=== PATIENT | male | born 1945 | race Caucasian/White ===

== ENCOUNTER 2021-11-20 12:51 | Inpatient (IN) | payer OTHER ==
[2021-11-20] MEDS: APIXABAN 5 MG TABLET PO SCH ×2 (09:00→21:00)
[2021-11-20] MEDS ORDERED: LEVALBUTEROL 1.25 MG/3 ML NEB ONE (13:11)
[2021-11-20] MEDS ORDERED: METHYLPREDNISOLONE 125 MG INJ ONE (13:11)
[2021-11-20 13:47] LABS: Absolute Lymphocytes (CBC) 0.4 K/uL (0.7-4.9); Hematocrit 50.2 % (39.6-49.0); Lymphocytes % 5.6 % (15.3-44.8); MPV 8.2 fL (7.6-11.3); RBC Red Blood Cell Count 5.51 M/uL (4.33-5.43)
[2021-11-20 13:58] LABS: Protime INR 1.09
[2021-11-20 14:09] LABS: Albumin 2.8 g/dL (3.4-5.0); Bilirubin Direct 0.3 mg/dL (0-0.2); Bilirubin Total 0.8 mg/dL (0.2-1.0); Magnesium 2.9 mg/dL (1.8-2.4); Potassium 3.5 mmol/L (3.5-5.1); Protein, Total 7.8 g/dL (6.4-8.2); Troponin High Sensitivity 36.1 pg/mL (<58.9)
[2021-11-20 14:26] LABS: Blood Morphology Comment NOT SEEN (NOT SEEN); Platelet Estimate ADEQ; White Blood Cell Scan OK (OK)
--- NOTE | 2021-11-20 14:28 | RAD REPORT ---
EXAM DESCRIPTION: RAD - Chest Single View - 11/20/2021 1:55 pm CLINICAL HISTORY: COPD;Dyspnea Chest pain. COMPARISON: No comparisons FINDINGS: Portable technique limits examination quality. Moderate bilateral pulmonary opacities are present, greater on the left, likely representing pneumoni a. The heart is mildly enlarged in size. No displaced fractures.
[2021-11-20] MEDS ORDERED: CEFTRIAXONE 1000 MG/VIAL ONE (15:09)
[2021-11-20] MEDS ORDERED: AZITHROMYCIN 250 MG TAB ONE (15:09)
[2021-11-20] MEDS ORDERED: NA CHLORIDE 0.9% 50 ML ONE (15:09)
[2021-11-20 15:31] LABS: SARS-COV-2 RT PCR POSITIVE (NEGATIVE)
[2021-11-20] MEDS ORDERED: NA CHLORIDE 0.9% 500 ML ONE (15:48)
[2021-11-20] MEDS ORDERED: FAMOTIDINE 20 MG/2 ML VIAL IV ONE (15:48)
[2021-11-20] MEDS ORDERED: NA CHLORIDE 0.9% 1,000 ML ONE (18:09)
[2021-11-20] MEDS ORDERED: ACETAMINOPHEN 500 MG TAB PO PRN (19:29)
[2021-11-20] MEDS ORDERED: MORPHINE 2 MG/ML SYR IV PRN (19:29)
[2021-11-20] MEDS ORDERED: ONDANSETRON 4 MG/2 ML VIAL IV PRN (19:29)
[2021-11-20] MEDS ORDERED: ALBUTEROL INHALER 60 PUFF/8 GM IH PRN (19:35)
[2021-11-20] MEDS: NA CHLORIDE 0.9% 1,000 ML IV SCH (20:00)
--- NOTE | 2021-11-20 20:41 | ER ---
Nurse's Notes [facility] Name: Mejia Santos Jr Age: 76 yrs Sex: Male : 1945 Arrival Date: 11/20/2021 Time: 12:55 Bed 16 Private MD: Gretta Gaston H Diagnosis: Pneumonia, unspecified [id number];Hypoxemia Presentation: 11/20 13:05 Chief complaint: Patient states: Pt has been vomiting and diarrhea x2 weeks; jh5 significantly more weak last 3 days. Coronavirus screen: Vaccine status: Patient reports being unvaccinated. Client denies travel out of the [place] in the last 14 days. Client presents with at least one sign or symptom that may indicate coronavirus-19. Standard/surgical mask placed on the client. Provider contacted for isolation considerations. Ebola Screen: Patient negative for fever greater than or equal to 101.5 degrees Fahrenheit, and additional compatible Ebola Virus Disease symptoms Patient denies exposure to infectious person. Patient denies travel to an Ebola-affected area in the 21 days before illness onset. Initial Sepsis Screen: Does the patient meet any 2 criteria? RR > 20 per min. HR > 90 bpm. Does the patient have a suspected source of infection? Yes:. Risk Assessment: Do you want to hurt yourself or someone else? Patient reports no desire to harm self or others. Onset of symptoms was November 2021. 13:05 Method Of Arrival: Ambulatory [facility] 13:05 Acuity: NEIL 2 [facility] Triage Assessment: 13:08 General: Appears distressed, uncomfortable, slender, well groomed, well developed, well [facility] nourished, Behavior is calm, cooperative, appropriate for age. Pain: Denies pain. Historical: - Allergies: 13:08 No Known Allergies; jh5 - Home Meds: 17:08 tamsulosin 0.4 mg oral cap 1 cap once daily [Active]; aspirin 81 mg Oral TbEC 1 tab ph once daily [Active]; clopidogrel 75 mg oral tab 1 tab once daily [Active]; metoprolol succinate 25 mg oral Tb24 1 tab once daily [Active]; atorvastatin 40 mg oral tab 1 tab once daily [Active]; B complex-minerals oral tab [Active]; - PMHx: 17:08 Hypertensive disorder; Myocardial infarction; Hypercholesterolemia; ph - Immunization history:: Adult Immunizations up to date. - Social history:: Smoking status: Patient denies any tobacco usage or history of. Screenin:54 Abuse screen: Denies threats or abuse. Denies injuries from another. Nutritional ph screening: No deficits noted. Tuberculosis screening: No symptoms or risk factors identified. Fall Risk None identified. Assessment: 13:03 Reassessment: provider at bedside at this time. tw2 13:10 General: Appears in no apparent distress. slender, well groomed, Behavior is calm, ph cooperative, appropriate for age, Reports feeling ill for fatigue for >3 days, Denies fever. Pain: Denies pain. Neuro: Level of Consciousness is awake, alert, obeys commands, Oriented to person, place, time, situation. Cardiovascular: Reports shortness of breath, Capillary refill is sluggish in bilateral fingers Patient's skin is warm and dry. Rhythm is sinus tachycardia. Respiratory: Reports shortness of breath cough that is non-productive, labored breathing Airway is patent Respiratory effort is even, labored, Respiratory pattern is tachypnea Denies pain with respiration. GI: Reports diarrhea, nausea, vomiting, Patient currently denies abdominal pain. Derm: Skin is intact, Skin is pink, warm \\T\\ dry. Musculoskeletal: Circulation, motion, and sensation intact. Range of motion: intact in all extremities. 14:04 Reassessment: Patient appears in no apparent distress at this time. Pt remains ph tachypneic, Spo2 99% on NRB, family at bedside. 14:52 Reassessment: Patient appears in no apparent distress at this time. Patient and/or ph family updated on plan of care and expected duration. Pain level reassessed. Patient is alert, oriented x 3, equal unlabored respirations, skin warm/dry/pink. Repiratory rate decreased to 25 breaths per minute, Spo2 95-97% on venti mask at 9L, other VSS, family at bedside. 15:59 Reassessment: Patient appears in no apparent distress at this time. Patient and/or ph family updated on plan of care and expected duration. Pain level reassessed. 17:16 Reassessment: Patient appears in no apparent distress at this time. Patient and/or ph family updated on plan of care and expected duration. Pain level reassessed. Patient is alert, oriented x 3, equal unlabored respirations, skin warm/dry/pink. 19:30 Reassessment: Patient appears in no apparent distress at this time. Patient and/or vc1 family updated on plan of care and expected duration. Pain level reassessed. Patient is alert, oriented x 3, equal unlabored respirations, skin warm/dry/pink. Patient denies pain at this time. 21:00 Reassessment: Patient admitted as ER Hold see [facility] for further charting. vc1 Vital Signs: 12:55 BP 139 / 78; Pulse 95; Resp 32; Temp 97.8; Pulse Ox 65% on R/A; Weight 82.55 kg; Height jh5 5 ft. 11 in. (180.34 cm); 13:00 Pulse Ox 76% on Non-rebreather mask; tw2 13:03 Pulse Ox 85% on Non-rebreather mask; tw2 13:04 Pulse Ox 90% on Non-rebreather mask; tw2 14:02 BP 122 / 69; Pulse 105; Resp 32; Pulse Ox 98% on 100% Non-rebreather mask; ph 14:54 BP 121 / 61; Pulse 99; Resp 25; Pulse Ox 96% on 35% Venturi mask; ph 15:59 BP 133 / 76; Pulse 94; Resp 26; Pulse Ox 98% on 35% Venturi mask; ph 17:16 BP 135 / 65; Pulse 92; Resp 24; Pulse Ox 96% on 35% Venturi mask; ph 18:32 BP 124 / 69; Pulse 83; Resp 24; Temp 97.4; Pulse Ox 95% on 35% Venturi mask; ph 12:55 Body Mass Index 25.38 (82.55 kg, 180.34 cm) jh5 13:00 dr. mg notified of pts vs at this time tw2 13:04 Soraida,RT at bedside at this time tw2 ED Course: 12:55 Patient arrived in ED. mr 12:55 Gretta Gaston DO is Private Physician. mr 13:01 Sampson Mg MD is Attending Physician. kdr 13:08 Triage completed. 5 13:08 Arm band placed on right wrist. 5 13:19 COVID-19/FLU A+B (Document "Date of Onset" if Symptomatic) Sent. 5 13:19 EKG done, by ED staff, reviewed by Sampson Mg MD COVID swab sent to lab. mh5 13:20 Patient has correct armband on for positive identification. Placed in gown. Bed in low mh5 position. Call light in reach. Side rails up X2. Warm blanket given. shank sander on. Pulse ox on. NIBP on. 13:20 Initial lab(s) drawn, by pr, sent to lab. Inserted saline lock: 22 gauge in left ph antecubital area, using aseptic technique. Blood collected. 13:55 XRAY Chest (1 view) In Process Unspecified. EDMS 14:01 Cristina Martin, RN is Primary Nurse. jh5 14:05 Mary Ann Richardson, KIMBERLY is Primary Nurse. ph 14:54 No provider procedures requiring assistance completed. ph 19:03 Primary Nurse role handed off by Mary Ann Richardson, KIMBERLY mw2 20:39 Sampson Mg MD is Hospitalizing Provider. lp1 21:00 Patient admitted, IV remains in place. vc1 11/21 06:42 Annie Gomez, KIMBERLY is Primary Nurse. vc1 06:43 Ferritin Sent. vc1 06:43 C-Reactive Protein Sent. vc1 06:43 CBC with Automated Diff Sent. vc1 06:43 Comprehensive Metabolic Panel Sent. vc1 Administered Medications: 11/20 13:18 Drug: Xopenex (levalbuterol) (3) 1.25 mg Route: Inhalation; ph 14:06 Follow up: Response: No adverse reaction ph 13:22 Drug: SOLU-Medrol (methylPrednisoLONE) 125 mg Route: IVP; Site: left antecubital; ph 14:06 Follow up: Response: No adverse reaction ph 15:30 Drug: Rocephin - (cefTRIAXone) 1 grams Route: IVPB; Infused Over: 30 mins; Site: left ph antecubital; 15:58 Follow up: Response: No adverse reaction; IV Status: Completed infusion; IV Intake: 50mlph 15:56 Drug: Zithromax (azithromycin) 500 mg Route: PO; ph 15:58 Follow up: Response: No adverse reaction ph 15:58 Drug: Pepcid (famotidine) 20 mg Route: IVP; Site: left antecubital; ph 15:58 Follow up: Response: No adverse reaction ph 15:58 Drug: NS 0.9% 500 ml Route: IV; Rate: bolus; Site: left antecubital; ph 17:17 Follow up: Response: No adverse reaction; IV Status: Completed infusion; IV Intake: ph 500ml 17:30 Drug: NS 0.9% 1000 ml Route: IV; Rate: 100 ml/hr; Site: left antecubital; ph 19:33 Follow up: IV Status: Infusion continued upon admission ph Intake: 15:58 IV: 50ml; Total: 50ml. ph 17:17 IV: 500ml; Total: 550ml. ph Outcome: 20:40 Decision to Hospitalize by Provider. lp1 21:00 Admitted to ER Hold. Please see [facility] for further documentation. vc1 21:00 Condition: stable 21:00 Instructed on the need for admit. 11/21 16:05 Patient left the ED. ll1 Signatures: Dispatcher [employer] EDMS Sampson Mg MD MD kdr Rivera, Mary mr Viktoria Gordon RN RN lp1 Mary Ann Richardson RN RN Linda Kirkland, RN RN 2 Yessica Ball [facility] Josefina Verma 2 Mark Felton RN RN ll1 Cristina Martin RN RN 5 Annie Gomez RN RN vc1
--- NOTE | 2021-11-20 20:41 | EDPHYS ---
Physician Documentation [facility] Name: Mejia Santos Jr Age: 76 yrs Sex: Male : 1945 Arrival Date: 11/20/2021 Time: 12:55 Bed 16 Private MD: Gretta Gaston H ED Physician Sampson Mg Historical: - Allergies: 11/20 13:08 No Known Allergies; [facility] - Home Meds: 17:08 tamsulosin 0.4 mg oral cap 1 cap once daily [Active]; aspirin 81 mg Oral TbEC 1 tab ph once daily [Active]; clopidogrel 75 mg oral tab 1 tab once daily [Active]; metoprolol succinate 25 mg oral Tb24 1 tab once daily [Active]; atorvastatin 40 mg oral tab 1 tab once daily [Active]; B complex-minerals oral tab [Active]; - PMHx: 17:08 Hypertensive disorder; Myocardial infarction; Hypercholesterolemia; ph - Immunization history:: Adult Immunizations up to date. - Social history:: Smoking status: Patient denies any tobacco usage or history of. Exam: 14:08 ECG was reviewed by the Attending Physician. kdr Vital Signs: 12:55 BP 139 / 78; Pulse 95; Resp 32; Temp 97.8; Pulse Ox 65% on R/A; Weight 82.55 kg; Height 5 5 ft. 11 in. (180.34 cm); 13:00 Pulse Ox 76% on Non-rebreather mask; tw2 13:03 Pulse Ox 85% on Non-rebreather mask; tw2 13:04 Pulse Ox 90% on Non-rebreather mask; tw2 14:02 BP 122 / 69; Pulse 105; Resp 32; Pulse Ox 98% on 100% Non-rebreather mask; ph 14:54 BP 121 / 61; Pulse 99; Resp 25; Pulse Ox 96% on 35% Venturi mask; ph 15:59 BP 133 / 76; Pulse 94; Resp 26; Pulse Ox 98% on 35% Venturi mask; ph 17:16 BP 135 / 65; Pulse 92; Resp 24; Pulse Ox 96% on 35% Venturi mask; ph 18:32 BP 124 / 69; Pulse 83; Resp 24; Temp 97.4; Pulse Ox 95% on 35% Venturi mask; ph 12:55 Body Mass Index 25.38 (82.55 kg, 180.34 cm) jh5 13:00 dr. mg notified of pts vs at this time tw2 13:04 Soraida,RT at bedside at this time tw2 MDM: 20:40 Medical screening is not applicable. lp1 11/20 13:08 Order name: Basic Metabolic Panel; Complete Time: 14:47 kdr 11/20 13:08 Order name: CBC with Diff; Complete Time: 14:47 kdr 11/20 13:08 Order name: LFT's; Complete Time: 14:47 kdr 11/20 13:08 Order name: Magnesium; Complete Time: 14:47 kdr 11/20 13:08 Order name: NT PRO-BNP; Complete Time: 14:47 kdr 11/20 13:08 Order name: PT-INR; Complete Time: 14:47 kdr 11/20 13:08 Order name: Troponin HS; Complete Time: 14:47 kdr 11/20 13:09 Order name: COVID-19/FLU A+B (Document "Date of Onset" if Symptomatic); Complete Time: kdr 15:53 11/20 14:24 Order name: CBC Smear Scan; Complete Time: 14:47 EDMS 11/20 15:32 Order name: Lactate [facility] 11/20 15:32 Order name: Procalcitonin kdr 11/20 19:32 Order name: Comprehensive Metabolic Panel EDMS 11/20 19:32 Order name: Comprehensive Metabolic Panel EDMS 11/20 19:32 Order name: CBC with Automated Diff EDMS 11/20 13:08 Order name: XRAY Chest (1 view); Complete Time: 14:47 kdr 11/20 19:32 Order name: CBC with Automated Diff EDMS 11/20 19:33 Order name: C-Reactive Protein EDMS 11/20 19:33 Order name: C-Reactive Protein EDMS 11/20 19:34 Order name: Ferritin EDMS 11/20 19:34 Order name: Ferritin EDMS 11/20 19:49 Order name: Lactate Sepsis 2 HR Follow-up EDMS 11/20 23:07 Order name: Glucose, Ancillary Testing EDMS 11/21 08:24 Order name: Hemoglobin A1c EDMS 11/21 09:29 Order name: Glucose, Ancillary Testing EDMS 11/20 13:08 Order name: EKG; Complete Time: 13:09 kdr 11/20 13:08 Order name: Cardiac monitoring; Complete Time: 14: kdr 11/20 13:08 Order name: EKG - Nurse/Tech; Complete Time: 13:19 kdr 11/20 13:08 Order name: IV Saline Lock; Complete Time: 14: kdr 11/20 13:08 Order name: Labs collected and sent; Complete Time: 14:06 kdr 11/20 13:08 Order name: O2 Per Protocol; Complete Time: 13:20 kdr 11/20 13:08 Order name: O2 Sat Monitoring; Complete Time: 13:20 kdr 11/20 16:25 Order name: Diet Ada 1800 Sandeep; Complete Time: 16:26 tw2 11/20 19:32 Order name: CONS Physician Consult; Complete Time: 06:43 EDMS EC:08 Rate is 97 beats/min. Rhythm is regular, Sinus Rhythm with No ectopy. QRS [place] is kdr Normal. CT interval is normal. QRS interval is normal. QT interval is normal. Clinical impression: NSR w/ Non-specific ST/T Changes. Administered Medications: 13:18 Drug: Xopenex (levalbuterol) (3) 1.25 mg Route: Inhalation; ph 14:06 Follow up: Response: No adverse reaction ph 13:22 Drug: SOLU-Medrol (methylPrednisoLONE) 125 mg Route: IVP; Site: left antecubital; ph 14:06 Follow up: Response: No adverse reaction ph 15:30 Drug: Rocephin - (cefTRIAXone) 1 grams Route: IVPB; Infused Over: 30 mins; Site: left ph antecubital; 15:58 Follow up: Response: No adverse reaction; IV Status: Completed infusion; IV Intake: 50mlph 15:56 Drug: Zithromax (azithromycin) 500 mg Route: PO; ph 15:58 Follow up: Response: No adverse reaction ph 15:58 Drug: Pepcid (famotidine) 20 mg Route: IVP; Site: left antecubital; ph 15:58 Follow up: Response: No adverse reaction ph 15:58 Drug: NS 0.9% 500 ml Route: IV; Rate: bolus; Site: left antecubital; ph 17:17 Follow up: Response: No adverse reaction; IV Status: Completed infusion; IV Intake: ph 500ml 17:30 Drug: NS 0.9% 1000 ml Route: IV; Rate: 100 ml/hr; Site: left antecubital; ph 19:33 Follow up: IV Status: Infusion continued upon admission ph Disposition Summary: 11/20/21 20:40 Hospitalization Ordered Hospitalization Status: Inpatient Admission lp1 Provider: Sampson Mg Condition: Stable lp1 Bed/Room Type: Standard [facility] Location: Telemetry/MedSurg (Inpatient)(11/21/21 14:15) Room Assignment: 420(11/21/21 14:15) bd Diagnosis - Pneumonia, unspecified organism - COVID-19 lp1 - Hypoxemia lp1 Discharge Instructions: - Discharge Summary Sheet ph Forms: - Medication Reconciliation Form lp1 - SBAR form ph Signatures: Dispatcher [employer] EDMS Adela Stallings Kevin, MD MD [facility] Viktoria Gordon RN RN 1 Mary Ann Richardson RN RN Josefina Verma mw2 Cristina Martin RN RN 5 Corrections: (The following items were deleted from the chart) 20:41 20:40 Telemetry/MedSurg (Inpatient) lp1 mw2 20:41 20:40 lp1 mw2 11/21 14:15 11/20 20:41 [facility] ER HOLD mw2 bd 11/21 14:15 11/20 20:41 ERHOLD- mw2 bd
[2021-11-20] MEDS: METHYLPREDNISOLONE 40 MG INJ IV SCH (21:00)
[2021-11-20] MEDS ORDERED: APIXABAN 5 MG TABLET PO ONE (22:00)
--- NOTE | 2021-11-20 22:49 | P.HP ---
Certification for Inpatient Patient admitted to: Inpatient With expected LOS: >2 Midnights Patient will require the following post-hospital care: None Practitioner: I am a practitioner with admitting privileges, knowledge of patient current condition, hospital course, and medical plan of care. Services: Services provided to patient in accordance with Admission requirements found in Title 42 Section 412.3 of the Code of Federal Regulations Patient History Date of Service: 11/20/21 Reason for admission: COVID-19 pneumonia History of Present Illness: Patient is a 76-year-old gentleman who came to the hospital with shortness of breath. Patient had COVID-19 pneumonia. Patient was short of breath and hypoxic. Decision was made to come into the emergency room for further evaluation. Patient has not been vaccinated. He has been sick for the last 2 weeks. He has been waking up having nausea and vomiting. He has been feeling really weak and he came into the hospital very tachypneic with O2 sats in the 70s. Patient was placed on BiPAP. His O2 sats have improved. Patient been weaned down to 35% Venti mask. Will continue to monitor. Allergies No Known Allergies Allergy (Unverified 11/20/21 18:50) - Past Medical/Surgical History -: Hypertension -: CAD -: Dyslipidemia Past Surgical History: Patient denies surgical history - Family History Father Family History: Reviewed- Non-Contributory - Social History Smoking Status: Never smoker Alcohol use: No CD- Drugs: No Review of Systems 10-point ROS is otherwise unremarkable Physical Examination - Vital Signs Temperature: 98 F Blood Pressure: 140/80 Pulse: 80 Respirations: 24 Pulse Ox (%): 95 - Physical Exam General: Alert, In no apparent distress, Oriented x3 HEENT: Atraumatic, PERRLA, Mucous membr. moist/pink, EOMI, Sclerae nonicteric Neck: Supple, 2+ carotid pulse no bruit, No LAD, Without JVD or thyroid abnormality Respiratory: Diminished, Rhonchi/gurgles Cardiovascular: Regular rate/rhythm, Normal S1 S2, No murmurs Gastrointestinal: Normal bowel sounds, Soft and benign, Non-distended, No tenderness Musculoskeletal: No clubbing, No swelling, No tenderness Integumentary: No rashes Neurological: Normal gait, Normal speech, Normal strength at 5/5 x4 extr, Normal tone, Sensation intact, Cranial nerves 3-12 intact, Normal affect Lymphatics: No axilla or inguinal lymphadenopathy - Studies Laboratory Data (last 24 hrs) 11/20/21 13:25: PT 12.6 H, INR 1.09 11/20/21 13:25: WBC 7.40, Hgb 17.0, Hct 50.2 H, Plt Count 290 11/20/21 13:25: Sodium 136, Potassium 3.5, BUN 51 H, Creatinine 1.97 H, Glucose 111 H, Magnesium 2.9 H, Total Bilirubin 0.8, AST 113 H, ALT 97 H, Alkaline Phosphatase 114 Assessment & Plan - Problems (Diagnosis) (1) Pneumonia due to COVID-19 virus Current Visit: Yes Status: Acute (2) Hypoxemia Current Visit: Yes Status: Acute (3) Hypertension Current Visit: Yes Status: Acute (4) Dyslipidemia Current Visit: Yes Status: Acute - Plan 1. Continue with IV steroids 2. Monitor inflammatory markers 3. Repeat chest x-ray is symptoms are progressively worsening 4. O2 per protocol; wean down Venti mask 5. Pulmonary consultation 6. Continue with albuterol inhaler therapy; also supportive care 7. Inhaler therapy 8. GI and DVT prophylaxis Discharge Plan: Home Plan to discharge in: Greater than 2 days - Advance Directives Does patient have a Living Will: No Does patient have a Durable POA for Healthcare: No - Code Status/Comfort Care Code Status Assessed: Yes Code Status: Full Code Critical Care: No Time Spent Managing PTS Care (In Minutes): 45
[2021-11-20] MEDS ORDERED: HYDROCORTISONE SUC 100 MG INJ ONE (22:59)
[2021-11-20] MEDS ORDERED: APIXABAN 5 MG TABLET ONE (22:59)
[2021-11-21 00:40] VITALS: BMI 25.4
[2021-11-21 03:47] LABS: Absolute Lymphocytes (CBC) 0.4 K/uL (0.7-4.9); Hematocrit 43.8 % (39.6-49.0); Lymphocytes % 6.3 % (15.3-44.8); MPV 8.1 fL (7.6-11.3); RBC Red Blood Cell Count 4.83 M/uL (4.33-5.43)
[2021-11-21 04:20] LABS: Albumin 2.3 g/dL (3.4-5.0); Bilirubin Total 0.6 mg/dL (0.2-1.0); C-Reactive Protein 72.3 mg/L (<3.00); Ferritin 1111.5 ng/mL (26-388); Potassium 3.8 mmol/L (3.5-5.1); Protein, Total 6.5 g/dL (6.4-8.2)
[2021-11-21] MEDS ORDERED: NA CHLORIDE 0.9% 1,000 ML ONE (07:01)
[2021-11-21] MEDS: NA CHLORIDE 0.9% 1,000 ML IV SCH (07:01)
[2021-11-21] MEDS: ASPIRIN EC 81 MG TAB PO SCH (09:00)
[2021-11-21] MEDS: THIAMINE HCL 100 MG TABLET PO SCH (09:00)
[2021-11-21] MEDS: ZINC SULFATE 220 MG CAP PO SCH (09:00)
[2021-11-21] MEDS: VITAMIN D 1000 UNIT TAB PO SCH (09:00)
[2021-11-21] MEDS: CLOPIDOGREL 75 MG TABLET PO SCH (09:00)
[2021-11-21] MEDS: METHYLPREDNISOLONE 40 MG INJ IV SCH ×2 (09:00→21:00)
[2021-11-21] MEDS: TAMSULOSIN 0.4 MG SR CAP PO SCH (09:00)
[2021-11-21] MEDS: METOPROLOL XL 25 MG TAB PO SCH (09:00)
[2021-11-21] MEDS: VITAMIN B COMPLEX 1 CAP PO SCH (09:00)
--- NOTE | 2021-11-21 09:38 | P.CNS ---
Date of Consult: 11/21/21 Reason for Consult: COVID penumonia Chief Complaint: COVID-19 pneumonia History of Present Illness: AGe 76 AW resp failure sec to COVID penumonia, not vacinated sick past 2 wks better now./ on high flow O2 Allergies No Known Allergies Allergy (Unverified 11/20/21 18:50) Home Medications: Aspirin [Aspirin EC 81 MG] 81 mg PO DAILY 11/21/21 Atorvastatin Calcium [Lipitor] 40 mg PO BEDTIME 11/21/21 Clopidogrel Bisulfate [Plavix] 75 mg PO DAILY 11/21/21 Folic Acid/Vit B Complex and C [B-Complex Plus Vitamin C] 1 each PO DAILY 11/21/21 Metoprolol Succinate [Toprol Xl] 25 mg PO DAILY 11/21/21 Tamsulosin HCl [Flomax] 0.4 mg PO DAILY 11/21/21 - Past Medical/Surgical History Diabetic: No -: Hypertension -: CAD -: Dyslipidemia -: Heart stents - Family History Father Family History: Reviewed- Non-Contributory - Social History Alcohol use: No CD- Drugs: No Place of Residence: Home Review of Systems General: Weakness Respiratory: Cough, Shortness of Breath Physical Examination Temp Pulse Resp BP Pulse Ox 98.1 F 70 36 H 115/71 90 L 11/21/21 04:00 11/21/21 04:00 11/21/21 04:00 11/21/21 04:00 11/21/21 04:00 General: Alert, Oriented x3, Mild distress Respiratory: Clear to auscultation bilaterally Cardiovascular: No edema, Normal S1 S2 Laboratory Data (last 24 hrs) 11/20/21 13:25: PT 12.6 H, INR 1.09 11/20/21 13:25: WBC 7.40, Hgb 17.0, Hct 50.2 H, Plt Count 290 11/20/21 13:25: Sodium 136, Potassium 3.5, BUN 51 H, Creatinine 1.97 H, Glucose 111 H, Magnesium 2.9 H, Total Bilirubin 0.8, AST 113 H, ALT 97 H, Alkaline Phosphatase 114 - Problems (1) Pneumonia due to COVID-19 virus Current Visit: Yes Status: Acute Plan: Age 76 AW COVID pneumonia of high flow O2, LAbs ,CXRY and meds reviewed/ DC IV fluids Qualifies for Barcitinib/ DC IV fluids/
[2021-11-21] MEDS ORDERED: METHYLPREDNISOLONE 125 MG INJ ONE (09:54)
[2021-11-21] MEDS ORDERED: ASPIRIN EC 81 MG TAB PO ONE (09:54)
[2021-11-21] MEDS ORDERED: ZINC SULFATE 220 MG CAP ONE (09:54)
[2021-11-21] MEDS ORDERED: VITAMIN D 1000 UNIT TAB ONE (09:55)
[2021-11-21] MEDS ORDERED: TAMSULOSIN 0.4 MG SR CAP ONE (09:55)
[2021-11-21] MEDS ORDERED: CLOPIDOGREL 75 MG TABLET ONE (09:55)
[2021-11-21] MEDS ORDERED: VITAMIN B COMPLEX 1 CAP ONE (09:56)
--- NOTE | 2021-11-21 10:38 | P.PN ---
Subjective Date of Service: 11/21/21 Primary Care Provider: Dr. Gaston Chief Complaint: COVID-19 pneumonia Subjective: Other (Patient reports slight improvement. Currently on Ventimask. Patient is unvaccinated) Physical Examination - Vital Signs Temperature: 98.1 F Blood Pressure: 134/76 Pulse: 77 Respirations: 26 Pulse Ox (%): 90 - Studies Laboratory Data (last 24 hrs) 11/20/21 13:25: PT 12.6 H, INR 1.09 11/20/21 13:25: WBC 7.40, Hgb 17.0, Hct 50.2 H, Plt Count 290 11/20/21 13:25: Sodium 136, Potassium 3.5, BUN 51 H, Creatinine 1.97 H, Glucose 111 H, Magnesium 2.9 H, Total Bilirubin 0.8, AST 113 H, ALT 97 H, Alkaline Phosphatase 114 Assessment & Plan Discharge Plan: Home Plan to discharge in: Greater than 2 days Physician Review Additional Text: COVID: positive, unvaccinated CXR: COMPARISON: No comparisons FINDINGS: Portable technique limits examination quality. Moderate bilateral pulmonary opacities are present, greater on the left, likely representing pneumonia. The heart is mildly enlarged in size. No displaced fractures Physical Exam: GENERAL: The patient is a well-developed, well-nourished, in no apparent distress. Alert and oriented x3. VITAL SIGNS: Reviewed HEENT: Neck supple LUNGS: Clear to auscultation. No crackles or wheezes are heard. Currently on Ventimask HEART: Regular rate and rhythm, no appreciable gallops, rubs, murmurs or extra heart sounds ABDOMEN: Soft, nontender, and nondistended. Positive bowel sounds. No hepatosplenomegaly was noted. EXTREMITIES: Without any cyanosis, clubbing, rash, lesions or peripheral edema. NEUROLOGIC: The patient is oriented to person, place and time. Strength and sensation are grossly intact. Face is symmetric. SKIN: Normal color, turgor and temperature. No ulcerations or rashes noted. Impression: Dyspnea secondary to bilateral COVID-pneumonia with hypoxia Hypertension CAD BPH GERD Hyperlipidemia Plan: Dyspnea secondary to bilateral COVID-pneumonia with hypoxia: Continue to wean off oxygen to maintain sats above 93%. Pulmonology consulted. Await recommendations. Patient may qualify for baricitinib. Await recommendations by pulmonology. Respiratory to continue to help in weaning off oxygen. Recheck chest x-ray tomorrow. Continue IV steroids and supplementation. Encourage proning or lying on his side. Continue to reassess. Anticipate continued improvement over the next several days. Hypertension: Restart Toprol-XL 25 mg daily. Will monitor and adjust appropriately. Acute on chronic renal disease stage III: Discontinue IV fluids. Recheck labs again tomorrow. Encourage oral intake. CAD: Restart Plavix 25 mg daily. Discontinue Eliquis and changed to Lovenox for DVT prophylaxis. BPH: Continue Flomax 0.4 mg daily. GERD: We will provide Protonix 40 mg daily. Hyperlipidemia: Continue Lipitor 40 mg daily Code Status: Full Code DVT prophylaxis: Lovenox Advanced Care Planning-30 minutes: Home at discharge Time Spent Managing Pts Care (In Minutes): 55
[2021-11-21] MEDS: BARICITINIB 2 MG TABLET PO SCH (11:00)
[2021-11-21] MEDS: ENOXAPARIN 30 MG/0.3 ML SQ SCH (17:34)
[2021-11-21] MEDS ORDERED: ATORVASTATIN 40 MG TAB PO SCH (21:00)
[2021-11-22] MEDS: PANTOPRAZOLE 40MG TABLET PO SCH ×2 (01:00→05:32)
[2021-11-22 04:05] LABS: Absolute Lymphocytes (CBC) 0.6 K/uL (0.7-4.9); Hematocrit 44.9 % (39.6-49.0); Lymphocytes % 5.3 % (15.3-44.8); MPV 8.5 fL (7.6-11.3); RBC Red Blood Cell Count 4.93 M/uL (4.33-5.43)
[2021-11-22 04:30] LABS: Albumin 2.3 g/dL (3.4-5.0); Bilirubin Total 0.8 mg/dL (0.2-1.0); Ferritin 1049.5 ng/mL (26-388); Magnesium 3.3 mg/dL (1.8-2.4); Potassium 3.9 mmol/L (3.5-5.1); Protein, Total 6.5 g/dL (6.4-8.2)
--- NOTE | 2021-11-22 06:20 | P.PN ---
Subjective Date of Service: 11/22/21 Primary Care Provider: Dr. Gaston Chief Complaint: COVID-19 pneumonia Subjective: Other (Patient still requiring oxygen this morning patient requiring 15 L) Physical Examination - Vital Signs Temperature: 98.2 F Blood Pressure: 125/66 Pulse: 81 Respirations: 22 Pulse Ox (%): 89 Assessment & Plan Discharge Plan: Home Plan to discharge in: Greater than 2 days Physician Review Additional Text: COVID: positive, unvaccinated Initial CXR: COMPARISON: No comparisons FINDINGS: Portable technique limits examination quality. Moderate bilateral pulmonary opacities are present, greater on the left, likely representing pneumonia. The heart is mildly enlarged in size. No displaced fractures Follow up CXR 11/22/2021: COMPARISON: Chest Single View dated 11/20/2021 FINDINGS: Lines: None. Lungs: Moderate bilateral airspace disease with mild interval worsening. Pleural: No significant pleural effusions or pneumothorax. Cardiac: The heart size is within normal limits. Bones: No acute fractures. IMPRESSION: Moderate bilateral airspace disease which has worsened since 11/20/2021 and presumably represents pneumonia. Physical Exam: GENERAL: The patient is a well-developed, well-nourished, in no apparent distress. Alert and oriented x3. VITAL SIGNS: Reviewed HEENT: Neck supple LUNGS: Patient currently on 15 L HEART: Regular rate and rhythm, no appreciable gallops, rubs, murmurs or extra heart sounds ABDOMEN: Soft, nontender, and nondistended. Positive bowel sounds. No hepatosplenomegaly was noted. EXTREMITIES: Without any cyanosis, clubbing, rash, lesions or peripheral edema. NEUROLOGIC: The patient is oriented to person, place and time. Strength and s ensation are grossly intact. Face is symmetric. SKIN: Normal color, turgor and temperature. No ulcerations or rashes noted. Impression: Dyspnea secondary to bilateral COVID-pneumonia with hypoxia Hypertension CAD BPH GERD Hyperlipidemia Plan: Dyspnea secondary to bilateral COVID-pneumonia with hypoxia: Patient currently on 15 L per nasal cannula. Patient would likely require high flow. Continue IV steroids. Will start baricitinib as patient meets criteria. Wean off oxygen to maintain sats greater than 93%. Encourage proning and lying on his side. Encourage ambulation. Continue to monitor chest x-ray. Case discussed with pulmonology. Will monitor over the next several days. Hypertension: Continue Toprol-XL 25 mg daily. Will monitor and adjust appropriately. Acute on chronic renal disease stage III: Overall stable. Recheck labs again tomorrow. Encourage oral intake. CAD: Continue Plavix 25 mg daily. Continue DVT prophylaxis BPH: Continue Flomax 0.4 mg daily. GERD: Continue Protonix 40 mg daily. Hyperlipidemia: Continue Lipitor 40 mg daily Code Status: Full Code DVT prophylaxis: Lovenox Advanced Care Planning-30 minutes: Home at discharge Time Spent Managing Pts Care (In Minutes): 55
[2021-11-22] MEDS ORDERED: PANTOPRAZOLE 40MG TABLET PO SCH (06:30)
--- NOTE | 2021-11-22 07:24 | RAD REPORT ---
EXAM DESCRIPTION: RAD - Chest Single View - 11/22/2021 6:16 am CLINICAL HISTORY: follow up COVID COMPARISON: Chest Single View dated 11/20/2021 FINDINGS: Lines: None. Lungs: Moderate bilateral airspace disease with mild interval worsening. Pleural: No significant pleural effusions or pneumothorax. Cardiac: The heart size is within normal limits. Bones: No acute fractures. Other: IMPRESSION: Moderate bilateral airspace disease which has worsened since 11/20/2021 and presumably r epresents pneumonia.
[2021-11-22] MEDS: VITAMIN D 1000 UNIT TAB PO SCH (08:25)
[2021-11-22] MEDS: METOPROLOL XL 25 MG TAB PO SCH (08:26)
[2021-11-22] MEDS: VITAMIN B COMPLEX 1 CAP PO SCH (08:26)
[2021-11-22] MEDS: TAMSULOSIN 0.4 MG SR CAP PO SCH (08:27)
[2021-11-22] MEDS: ZINC SULFATE 220 MG CAP PO SCH (08:27)
[2021-11-22] MEDS: CLOPIDOGREL 75 MG TABLET PO SCH (08:27)
[2021-11-22] MEDS: THIAMINE HCL 100 MG TABLET PO SCH (08:27)
[2021-11-22] MEDS: ASPIRIN EC 81 MG TAB PO SCH (08:27)
[2021-11-22] MEDS: METHYLPREDNISOLONE 40 MG INJ IV SCH ×2 (08:36→21:18)
[2021-11-22] MEDS: BARICITINIB 2 MG TABLET PO SCH (09:27)
--- NOTE | 2021-11-22 12:37 | P.PN ---
Subjective Date of Service: 11/22/21 Primary Care Provider: Dr. Gaston Chief Complaint: COVID-19 pneumonia Patient is requiring 100% FiO2 planing of some respiratory distress Review of Systems General: Weakness Respiratory: Shortness of Breath Physical Examination - Vital Signs Temperature: 98.3 F Blood Pressure: 131/61 Pulse: 83 Respirations: 24 Pulse Ox (%): 89 - Physical Exam General: Alert, Oriented x3, Mild distress Assessment & Plan - Problems (Diagnosis) (1) Pneumonia due to COVID-19 virus Current Visit: Yes Status: Acute Plan: Respiratory failure from coronavirus 100% FiO2 renal function is improving chest x-ray shows COVID-pneumonia no change in present therapy oxygenation satisfactory
[2021-11-22] MEDS: ENOXAPARIN 30 MG/0.3 ML SQ SCH (17:13)
[2021-11-23 05:53] LABS: Absolute Lymphocytes (CBC) 0.4 K/uL (0.7-4.9); Hematocrit 41.6 % (39.6-49.0); Lymphocytes % 3.4 % (15.3-44.8); RBC Red Blood Cell Count 4.57 M/uL (4.33-5.43)
[2021-11-23] MEDS: PANTOPRAZOLE 40MG TABLET PO SCH (06:06)
--- NOTE | 2021-11-23 06:16 | P.PN ---
Subjective Date of Service: 11/23/21 Primary Care Provider: Dr. Gaston Chief Complaint: COVID-19 pneumonia Subjective: Other (Patient on high flow) Physical Examination - Vital Signs Temperature: 97.8 F Blood Pressure: 121/63 Pulse: 78 Respirations: 20 Pulse Ox (%): 88 Assessment & Plan Discharge Plan: Home Plan to discharge in: Greater than 2 days Physician Review Additional Text: COVID: positive, unvaccinated Initial CXR: COMPARISON: No comparisons FINDINGS: Portable technique limits examination quality. Moderate bilateral pulmonary opacities are present, greater on the left, likely representing pneumonia. The heart is mildly enlarged in size. No displaced fractures Follow up CXR 11/22/2021: COMPARISON: Chest Single View dated 11/20/2021 FINDINGS: Lines: None. Lungs: Moderate bilateral airspace disease with mild interval worsening. Pleural: No significant pleural effusions or pneumothorax. Cardiac: The heart size is within normal limits. Bones: No acute fractures. IMPRESSION: Moderate bilateral airspace disease which has worsened since 11/20/2021 and presumably represents pneumonia. Physical Exam: GENERAL: The patient is a well-developed, well-nourished, in no apparent distress. Alert and oriented x3. VITAL SIGNS: Reviewed HEENT: Neck supple LUNGS: Patient currently on high flow and 100%. HEART: Regular rate and rhythm, no appreciable gallops, rubs, murmurs or extra heart sounds ABDOMEN: Soft, nontender, and nondistended. Positive bowel sounds. No hepatosplenomegaly was noted. EXTREMITIES: Without any cyanosis, clubbing, rash, lesions or peripheral edema. NEUROLOGIC: The patient is oriented to person, place and time. Strength and sensation are grossly intact. Face is symmetric. SKIN: Normal color, turgor and temperature. No ulcerations or rashes noted. Impression: Dyspnea secondary to bilateral COVID-pneumonia with hypoxia Hypertension CAD BPH GERD Hyperlipidemia Plan: Dyspnea secondary to bilateral COVID-pneumonia with hypoxia: Patient on high flow at 100%. Continue wean off oxygen to maintain sats above 93%. Continue IV steroid and baricitinib. Encourage proning, lying on his side. Patient reports slight improvement. We will continue to monitor closely. Will discuss with his son as well. Continue with pulmonology recommendations. We will monitor electrolytes closely. Hypertension: Continue Toprol-XL 25 mg daily. Will monitor and adjust appropria tely. Acute on chronic renal disease stage III: Overall stable. Recheck labs again tomorrow. Encourage oral intake. CAD: Continue Plavix 25 mg daily. Continue DVT prophylaxis BPH: Continue Flomax 0.4 mg daily. GERD: Continue Protonix 40 mg daily. Hyperlipidemia: Continue Lipitor 40 mg daily Code Status: Full Code DVT prophylaxis: Lovenox Advanced Care Planning-30 minutes: Home at discharge Time Spent Managing Pts Care (In Minutes): 55
[2021-11-23 06:27] LABS: Albumin 2.1 g/dL (3.4-5.0); Bilirubin Total 0.8 mg/dL (0.2-1.0); C-Reactive Protein 26.8 mg/L (<3.00); Ferritin 1197.7 ng/mL (26-388); Magnesium 3.5 mg/dL (1.8-2.4); Potassium 4.1 mmol/L (3.5-5.1)
--- NOTE | 2021-11-23 07:34 | EKG ---
Test Date: 2021-11-20 Test Time: 13:29:18 Remote Encoding Operations Supervisor: TRUDI MEASUREMENT RESULTS: Intervals: Rate: 97 MA: 144 QRSD: 88 QT: 374 QTc: 474 Young: P: 48 MA: 144 QRS: 24 T: 73 INTERPRETIVE STATEMENTS: Normal sinus rhythm Anteroseptal infarct, age undetermined Abnormal ECG Compared to ECG 02/06/2002 00:03:00 No significant changes Electronically Signed On 11-23-21 07:26:59 [employer] by Paul Hirsch
[2021-11-23] MEDS: TAMSULOSIN 0.4 MG SR CAP PO SCH ×2 (09:00→09:58)
[2021-11-23] MEDS: VITAMIN D 1000 UNIT TAB PO SCH (09:27)
[2021-11-23] MEDS: CLOPIDOGREL 75 MG TABLET PO SCH (09:27)
[2021-11-23] MEDS: ZINC SULFATE 220 MG CAP PO SCH (09:27)
[2021-11-23] MEDS: VITAMIN B COMPLEX 1 CAP PO SCH (09:27)
[2021-11-23] MEDS: METOPROLOL XL 25 MG TAB PO SCH (09:28)
[2021-11-23] MEDS: THIAMINE HCL 100 MG TABLET PO SCH (09:28)
[2021-11-23] MEDS: METHYLPREDNISOLONE 40 MG INJ IV SCH ×2 (09:29→20:42)
[2021-11-23] MEDS: BARICITINIB 2 MG TABLET PO SCH (09:33)
[2021-11-23] MEDS: ASPIRIN EC 81 MG TAB PO SCH (09:57)
[2021-11-23] MEDS: ENOXAPARIN 30 MG/0.3 ML SQ SCH (17:57)
[2021-11-24] MEDS: PANTOPRAZOLE 40MG TABLET PO SCH (05:49)
--- NOTE | 2021-11-24 06:05 | P.PN ---
Subjective Date of Service: 11/24/21 Primary Care Provider: Dr. Gaston Chief Complaint: COVID-19 pneumonia Subjective: Other (Patient had some mild anxiety overnight. Overall stable. Currently on high flow 100%) Physical Examination - Vital Signs Temperature: 97.4 F Blood Pressure: 134/63 Pulse: 76 Respirations: 19 Pulse Ox (%): 91 Assessment & Plan Discharge Plan: Home Plan to discharge in: Greater than 2 days Physician Review Additional Text: COVID: positive, unvaccinated Initial CXR: COMPARISON: No comparisons FINDINGS: Portable technique limits examination quality. Moderate bilateral pulmonary opacities are present, greater on the left, likely representing pneumonia. The heart is mildly enlarged in size. No displaced fractures Follow up CXR 11/22/2021: COMPARISON: Chest Single View dated 11/20/2021 FINDINGS: Lines: None. Lungs: Moderate bilateral airspace disease with mild interval worsening. Pleural: No significant pleural effusions or pneumothorax. Cardiac: The heart size is within normal limits. Bones: No acute fractures. IMPRESSION: Moderate bilateral airspace disease which has worsened since 11/20/2021 and presumably represents pneumonia. Physical Exam: GENERAL: The patient is a well-developed, well-nourished, in no apparent distress. Alert and oriented x3. VITAL SIGNS: Reviewed HEENT: Neck supple LUNGS: Patient currently on high flow and 100%. HEART: Regular rate and rhythm, no appreciable gallops, rubs, murmurs or extra heart sounds ABDOMEN: Soft, nontender, and nondistended. Positive bowel sounds. No hepatosplenomegaly was noted. EXTREMITIES: Without any cyanosis, clubbing, rash, lesions or peripheral edema. NEUROLOGIC: The patient is oriented to person, place and time. Strength and sensation are grossly intact. Face is symmetric. SKIN: Normal color, turgor and temperature. No ulcerations or rashes noted. Impression: Dyspnea secondary to bilateral COVID-pneumonia with hypoxia Hypertension CAD BPH GERD Hyperlipidemia Plan: Dyspnea secondary to bilateral COVID-pneumonia with hypoxia: Patient stable at this time. Patient remains on high flow 100%. Continue wean off oxygen to maintain sats above 93%. Continue IV steroid and baricitinib. Need to consider discontinuing baricitinib as liver function tests have increased. Discussed with pharmacy. Encourage proning, lying on his side. Consider adding medication for anxiety if needed. Continue to monitor closely. Continue with pulmonology recommendations. Continue discussed with son as well. Hypertension: Continue Toprol-XL 25 mg daily. Will monitor and adjust appropriately. Acute on chronic renal disease stage III: Overall stable CAD: Continue Plavix 75 mg daily. Continue DVT prophylaxis BPH: Continue Flomax 0.4 mg daily. GERD: Continue Protonix 40 mg daily. Hyperlipidemia: Hold Lipitor 40 mg daily due to elevated liver function and while patient on baricitinib. Code Status: Full Code DVT prophylaxis: Lovenox Advanced Care Planning-30 minutes: Home at discharge Time Spent Managing Pts Care (In Minutes): 55
[2021-11-24 06:45] LABS: Absolute Lymphocytes (CBC) 0.4 K/uL (0.7-4.9); Hematocrit 42.9 % (39.6-49.0); Lymphocytes % 3.8 % (15.3-44.8); MPV 8.4 fL (7.6-11.3); RBC Red Blood Cell Count 4.71 M/uL (4.33-5.43)
[2021-11-24 07:08] LABS: Albumin 2.2 g/dL (3.4-5.0); Bilirubin Total 0.9 mg/dL (0.2-1.0); C-Reactive Protein 21.2 mg/L (<3.00); Ferritin 1583.1 ng/mL (26-388); Magnesium 3.5 mg/dL (1.8-2.4); Potassium 3.7 mmol/L (3.5-5.1); Protein, Total 6.5 g/dL (6.4-8.2)
[2021-11-24 08:15] LABS: Blood Morphology Comment NOT SEEN (NOT SEEN); Platelet Estimate ADEQ
[2021-11-24] MEDS: BARICITINIB 2 MG TABLET PO SCH (09:00)
--- NOTE | 2021-11-24 09:39 | RAD REPORT ---
EXAM DESCRIPTION: RAD - Chest Single View - 11/24/2021 9:18 am CLINICAL HISTORY: Follow-up COVID COMPARISON: Chest Single View dated 11/22/2021; Chest Single View dated 11/20/2021 FINDINGS: Lines: None. Lungs: Worsening bilateral airspace disease with increasing consolidation. Pleural: No significant pleural effusions or pneumothorax. Cardiac: Enlarged cardiac silhouette. Bones: No acute fractures. Other: IMPRESSION: Worsening severe bilateral airspace disease consistent with multifocal pneumonia. The de gree of consolidation has progressed.
[2021-11-24] MEDS: CLOPIDOGREL 75 MG TABLET PO SCH (10:04)
[2021-11-24] MEDS: VITAMIN D 1000 UNIT TAB PO SCH (10:04)
[2021-11-24] MEDS: ZINC SULFATE 220 MG CAP PO SCH (10:05)
[2021-11-24] MEDS: METHYLPREDNISOLONE 40 MG INJ IV SCH ×2 (10:05→21:35)
[2021-11-24] MEDS: THIAMINE HCL 100 MG TABLET PO SCH (10:05)
[2021-11-24] MEDS: METOPROLOL XL 25 MG TAB PO SCH (10:06)
[2021-11-24] MEDS: ASPIRIN EC 81 MG TAB PO SCH (10:06)
[2021-11-24] MEDS: VITAMIN B COMPLEX 1 CAP PO SCH (10:06)
[2021-11-24] MEDS: TAMSULOSIN 0.4 MG SR CAP PO SCH (10:11)
[2021-11-24] MEDS ORDERED: ENOXAPARIN 40 MG/0.4 ML SQ SCH (17:00)
[2021-11-25] MEDS: PANTOPRAZOLE 40MG TABLET PO SCH (05:40)
--- NOTE | 2021-11-25 06:05 | P.PN ---
Subjective Date of Service: 11/25/21 Primary Care Provider: Dr. Gaston Chief Complaint: COVID-19 pneumonia Subjective: Other (Patient appears slightly improved. Patient reports that he is tired. Currently on high flow at 98%) Physical Examination - Vital Signs Temperature: 98.2 F Blood Pressure: 153/73 Pulse: 65 Respirations: 16 Pulse Ox (%): 93 Assessment & Plan Discharge Plan: Home Plan to discharge in: Greater than 2 days Physician Review Additional Text: COVID: positive, unvaccinated Initial CXR: COMPARISON: No comparisons FINDINGS: Portable technique limits examination quality. Moderate bilateral pulmonary opacities are present, greater on the left, likely representing pneumonia. The heart is mildly enlarged in size. No displaced fractures Follow up CXR 11/22/2021: COMPARISON: Chest Single View dated 11/20/2021 FINDINGS: Lines: None. Lungs: Moderate bilateral airspace disease with mild interval worsening. Pleural: No significant pleural effusions or pneumothorax. Cardiac: The heart size is within normal limits. Bones: No acute fractures. IMPRESSION: Moderate bilateral airspace disease which has worsened since 11/20/2021 and presumably represents pneumonia. Physical Exam: GENERAL: The patient is a well-developed, well-nourished, in no apparent distress. Alert and oriented x3. VITAL SIGNS: Reviewed HEENT: Neck supple LUNGS: Lungs clear. Currently on high flow at 90%. HEART: Regular rate and rhythm, no appreciable gallops, rubs, murmurs or extra heart sounds ABDOMEN: Soft, nontender, and nondistended. Positive bowel sounds. No hepatosplenomegaly was noted. EXTREMITIES: Without any cyanosis, clubbing, rash, lesions or peripheral edema. NEUROLOGIC: The patient is oriented to person, place and time. Strength and sensation are grossly intact. Face is symmetric. SKIN: Normal color, turgor and temperature. No ulcerations or rashes noted. Impression: Dyspnea secondary to bilateral COVID-pneumonia with hypoxia Hypertension CAD BPH GERD Hyperlipidemia Plan: Dyspnea secondary to bilateral COVID-pneumonia with hypoxia: Patient currently stable at this time. Still requiring high flow. Currently on 98% high flow. Continue to wean off oxygen to maintain sats above 93%. Continue IV steroid and baricitinib. Continue to monitor liver function test on baricitinib. Pharmacy to monitor and adjust. Encourage proning, lying on his side. Consider adding medication for anxiety if needed. Continue to monitor closely. Continue with pulmonology recommendations. I will turn the service over to the hospitalist team tomorrow. I will go over the plan of care with him. Hypertension: Continue Toprol-XL 25 mg daily. Will monitor and adjust appropriately. Acute on chronic renal disease stage III: Overall stable CAD: Continue Plavix 75 mg daily. Continue DVT prophylaxis BPH: Continue Flomax 0.4 mg daily. GERD: Continue Protonix 40 mg daily. Hyperlipidemia: Hold Lipitor 40 mg daily due to elevated liver function and while patient on baricitinib. Code Status: Full Code DVT prophylaxis: Lovenox Advanced Care Planning-30 minutes: Home at discharge Time Spent Managing Pts Care (In Minutes): 55
[2021-11-25 06:24] LABS: Absolute Lymphocytes (CBC) 0.3 K/uL (0.7-4.9); Hematocrit 44.2 % (39.6-49.0); Lymphocytes % 2.6 % (15.3-44.8); MPV 8.5 fL (7.6-11.3); RBC Red Blood Cell Count 4.83 M/uL (4.33-5.43)
[2021-11-25 06:53] LABS: Albumin 2.3 g/dL (3.4-5.0); Bilirubin Total 1.2 mg/dL (0.2-1.0); C-Reactive Protein 36.6 mg/L (<3.00); Ferritin 1663.2 ng/mL (26-388); Potassium 4.5 mmol/L (3.5-5.1); Protein, Total 6.6 g/dL (6.4-8.2)
--- NOTE | 2021-11-25 08:35 | RAD REPORT ---
EXAM DESCRIPTION: [place] Single View11/25/2021 5:52 am CLINICAL HISTORY: Chest pain COMPARISON: November 24, 2021 FINDINGS: Minimal improvement in diffuse bilateral pulmonary opacities. Heart remains enlarged IMPRESSION: Minimal improvement in the bilateral pneumonia
[2021-11-25] MEDS: TAMSULOSIN 0.4 MG SR CAP PO SCH (09:00)
[2021-11-25] MEDS: VITAMIN D 1000 UNIT TAB PO SCH (09:23)
[2021-11-25] MEDS: VITAMIN B COMPLEX 1 CAP PO SCH (09:23)
[2021-11-25] MEDS: BARICITINIB 2 MG TABLET PO SCH (09:23)
[2021-11-25] MEDS: THIAMINE HCL 100 MG TABLET PO SCH (09:23)
[2021-11-25] MEDS: METOPROLOL XL 25 MG TAB PO SCH ×2 (09:24→21:13)
[2021-11-25] MEDS: CLOPIDOGREL 75 MG TABLET PO SCH (09:24)
[2021-11-25] MEDS: ZINC SULFATE 220 MG CAP PO SCH (09:24)
[2021-11-25] MEDS: ASPIRIN EC 81 MG TAB PO SCH (09:25)
[2021-11-25] MEDS: METHYLPREDNISOLONE 40 MG INJ IV SCH ×2 (09:25→21:14)
--- NOTE | 2021-11-25 11:16 | P.PN ---
Subjective Date of Service: 11/25/21 Primary Care Provider: Dr. Gaston Chief Complaint: COVID-19 pneumonia and respiratory failure Patient is not doing well he still requiring high doses of FiO2 no significant change Review of Systems General: Weakness Respiratory: Shortness of Breath Physical Examination - Vital Signs Temperature: 97.1 F Blood Pressure: 159/70 Pulse: 77 Respirations: 24 Pulse Ox (%): 90 - Physical Exam General: Alert, Oriented x3, Moderate distress Respiratory: Clear to auscultation bilaterally, Diminished Assessment & Plan - Problems (Diagnosis) (1) Pneumonia due to COVID-19 virus Current Visit: Yes Status: Acute Plan: Respiratory failure from coronavirus no significant change trial of BiPAP alternating with high flow currently on Barcitinib and steroid chest x-ray shows severe COVID-pneumonia prognosis poor reduce dose of Solu-Medrol changed to p.o. Xarelto
[2021-11-25] MEDS: FUROSEMIDE 20 MG/ 2ML VIAL IV SCH (13:24)
[2021-11-25] MEDS: RIVAROXABAN 10 MG TABLET PO SCH (17:43)
[2021-11-26 08:15] LABS: Absolute Lymphocytes (CBC) 0.2 K/uL (0.7-4.9); Hematocrit 49.1 % (39.6-49.0); Lymphocytes % 1.7 % (15.3-44.8); MPV 8.6 fL (7.6-11.3)
[2021-11-26 08:44] LABS: Albumin 2.4 g/dL (3.4-5.0); Bilirubin Total 1.6 mg/dL (0.2-1.0); Potassium 4.2 mmol/L (3.5-5.1)
[2021-11-26 08:51] LABS: C-Reactive Protein 85.7 mg/L (<3.00); Ferritin 2149.1 ng/mL (26-388)
[2021-11-26] MEDS: TAMSULOSIN 0.4 MG SR CAP PO SCH (09:00)
[2021-11-26 09:27] LABS: Blood Morphology Comment NOT SEEN (NOT SEEN); Platelet Estimate ADEQ
[2021-11-26] MEDS: FUROSEMIDE 20 MG/ 2ML VIAL IV SCH (10:08)
[2021-11-26] MEDS: METHYLPREDNISOLONE 40 MG INJ IV SCH ×2 (10:08→21:13)
[2021-11-26] MEDS: CLOPIDOGREL 75 MG TABLET PO SCH (10:09)
[2021-11-26] MEDS: BARICITINIB 2 MG TABLET PO SCH (10:09)
[2021-11-26] MEDS: FAMOTIDINE 20 MG TAB PO SCH (10:09)
[2021-11-26] MEDS: THIAMINE HCL 100 MG TABLET PO SCH (10:09)
[2021-11-26] MEDS: ASPIRIN EC 81 MG TAB PO SCH (10:09)
[2021-11-26] MEDS: VITAMIN B COMPLEX 1 CAP PO SCH (10:09)
[2021-11-26] MEDS: METOPROLOL XL 25 MG TAB PO SCH ×2 (10:10→21:12)
[2021-11-26] MEDS: RIVAROXABAN 10 MG TABLET PO SCH (10:10)
[2021-11-26] MEDS: VITAMIN D 1000 UNIT TAB PO SCH (10:10)
--- NOTE | 2021-11-26 11:22 | P.PN ---
Subjective Date of Service: 11/26/21 Primary Care Provider: Dr. Gaston Chief Complaint: COVID-19 pneumonia and respiratory failure Patient seems to be improving oxygen requirements declining no change Review of Systems General: Weakness Respiratory: Shortness of Breath Physical Examination - Vital Signs Temperature: 97.8 F Blood Pressure: 167/84 Pulse: 81 Respirations: 26 Pulse Ox (%): 92 - Physical Exam General: Alert Neck: Supple Respiratory: Clear to auscultation bilaterally, Diminished Assessment & Plan - Problems (Diagnosis) (1) Pneumonia due to COVID-19 virus Current Visit: Yes Status: Acute Plan: Patient is improving oxygen requirements declining medication list reviewed no change have added some spironolactone blood pressure elevated continue with Lasix
--- NOTE | 2021-11-26 11:48 | P.PN ---
Subjective Date of Service: 11/26/21 Primary Care Provider: Dr. Gaston Chief Complaint: COVID-19 pneumonia and respiratory failure Subjective: No new changes, No C/O voiced (still on Bipap) Physical Examination - Vital Signs Temperature: 97.8 F Blood Pressure: 167/84 Pulse: 81 Respirations: 26 Pulse Ox (%): 92 Assessment And Plan Physician Review Additional Text: COVID: positive, unvaccinated Initial CXR: COMPARISON: No comparisons FINDINGS: Portable technique limits examination quality. Moderate bilateral pulmonary opacities are present, greater on the left, likely representing pneumonia. The heart is mildly enlarged in size. No displaced fractures Follow up CXR 11/22/2021: COMPARISON: Chest Single View dated 11/20/2021 FINDINGS: Lines: None. Lungs: Moderate bilateral airspace disease with mild interval worsening. Pleural: No significant pleural effusions or pneumothorax. Cardiac: The heart size is within normal limits. Bones: No acute fractures. IMPRESSION: Moderate bilateral airspace disease which has worsened since 11/20/2021 and presumably represents pneumonia. Physical Exam: GENERAL: The patient is a well-developed, well-nourished, in no apparent distress. Alert and oriented x3. VITAL SIGNS: Reviewed HEENT: Neck supple LUNGS: Lungs clear. Currently on high flow at 90%. HEART: Regular rate and rhythm, no appreciable gallops, rubs, murmurs or extra heart sounds ABDOMEN: Soft, nontender, and nondistended. Positive bowel sounds. No hepatosplenomegaly was noted. EXTREMITIES: Without any cyanosis, clubbing, rash, lesions or peripheral edema. NEUROLOGIC: The patient is oriented to person, place and time. Strength and sensation are grossly intact. Face is symmetric. SKIN: Normal color, turgor and temperature. No ulcerations or rashes noted. Impression: Dyspnea secondary to bilateral COVID-pneumonia with hypoxia Hypertension CAD BPH GERD Hyperlipidemia Plan: Dyspnea secondary to bilateral COVID-pneumonia with hypoxia: Currently on BiPAP, will try to wean back to high flow nasal cannula during the day today Maintaining O2 sat well Continue IV steroids Continue pulmonary follow-up Continue course of baricitinib -Continue to encourage self proning to side. Possibility of vent and intubation again discussed ,patient states he prefer not to be intubated Hypertension: Continue Toprol-XL 25 mg daily. Will monitor and adjust appropriately. Acute on chronic renal disease stage III: Overall stable CAD: Continue Plavix 75 mg daily. Continue DVT prophylaxis BPH: Continue Flomax 0.4 mg daily. GERD: Continue Protonix 40 mg daily. Hyperlipidemia: Hold Lipitor 40 mg daily due to elevated liver function and while patient on baricitinib. Code Status: Full Code DVT prophylaxis: Lovenox Advanced Care Planning-30 minutes: Home at discharge
[2021-11-26] MEDS: AMLODIPINE 5 MG TAB PO SCH (12:43)
[2021-11-26] MEDS: SPIRONOLACTONE 25 MG TABLET PO SCH (12:43)
[2021-11-27 03:28] LABS: Absolute Lymphocytes (CBC) 0.2 K/uL (0.7-4.9); Hematocrit 44.3 % (39.6-49.0); Lymphocytes % 1.4 % (15.3-44.8); MPV 8.5 fL (7.6-11.3); RBC Red Blood Cell Count 4.84 M/uL (4.33-5.43)
[2021-11-27 04:21] LABS: Albumin 2.1 g/dL (3.4-5.0); Bilirubin Total 1.5 mg/dL (0.2-1.0); Ferritin 2411.5 ng/mL (26-388); Potassium 4.2 mmol/L (3.5-5.1); Protein, Total 6.5 g/dL (6.4-8.2)
[2021-11-27] MEDS: TAMSULOSIN 0.4 MG SR CAP PO SCH (09:00)
[2021-11-27] MEDS: FUROSEMIDE 20 MG/ 2ML VIAL IV SCH (10:21)
[2021-11-27] MEDS: AMLODIPINE 5 MG TAB PO SCH (10:22)
[2021-11-27] MEDS: METHYLPREDNISOLONE 40 MG INJ IV SCH ×2 (10:22→21:40)
[2021-11-27] MEDS: VITAMIN B COMPLEX 1 CAP PO SCH (10:22)
[2021-11-27] MEDS: CLOPIDOGREL 75 MG TABLET PO SCH (10:22)
[2021-11-27] MEDS: ASPIRIN EC 81 MG TAB PO SCH (10:22)
[2021-11-27] MEDS: VITAMIN D 1000 UNIT TAB PO SCH (10:23)
[2021-11-27] MEDS: RIVAROXABAN 10 MG TABLET PO SCH (10:23)
[2021-11-27] MEDS: SPIRONOLACTONE 25 MG TABLET PO SCH (10:23)
[2021-11-27] MEDS: METOPROLOL XL 25 MG TAB PO SCH ×2 (10:23→21:39)
[2021-11-27] MEDS: FAMOTIDINE 20 MG TAB PO SCH (10:23)
[2021-11-27] MEDS: BARICITINIB 2 MG TABLET PO SCH (10:24)
[2021-11-27] MEDS: THIAMINE HCL 100 MG TABLET PO SCH (10:24)
--- NOTE | 2021-11-27 10:35 | P.PN ---
Subjective Date of Service: 11/27/21 Primary Care Provider: Dr. Gaston Chief Complaint: COVID-19 pneumonia and respiratory failure Subjective: No new changes, No C/O voiced Physical Examination - Vital Signs Temperature: 99 F Blood Pressure: 145/77 Pulse: 87 Respirations: 25 Pulse Ox (%): 94 Assessment And Plan Physician Review: Patient Assessed, Agree with Above Assessment and Plan Physician Review Additional Text: COVID: positive, unvaccinated Initial CXR: COMPARISON: No comparisons FINDINGS: Portable technique limits examination quality. Moderate bilateral pulmonary opacities are present, greater on the left, likely representing pneumonia. The heart is mildly enlarged in size. No displaced fractures Follow up CXR 11/22/2021: COMPARISON: Chest Single View dated 11/20/2021 FINDINGS: Lines: None. Lungs: Moderate bilateral airspace disease with mild interval worsening. Pleural: No significant pleural effusions or pneumothorax. Cardiac: The heart size is within normal limits. Bones: No acute fractures. IMPRESSION: Moderate bilateral airspace disease which has worsened since 11/20/2021 and presumably represents pneumonia. Physical Exam: GENERAL: The patient is a well-developed, well-nourished, in no apparent distress. Alert and oriented x3. VITAL SIGNS: Reviewed HEENT: Neck supple LUNGS: Lungs clear. Currently on high flow at 90%. HEART: Regular rate and rhythm, no appreciable gallops, rubs, murmurs or extra heart sounds ABDOMEN: Soft, nontender, and nondistended. Positive bowel sounds. No hepato splenomegaly was noted. EXTREMITIES: Without any cyanosis, clubbing, rash, lesions or peripheral edema. NEUROLOGIC: The patient is oriented to person, place and time. Strength and sensation are grossly intact. Face is symmetric. SKIN: Normal color, turgor and temperature. No ulcerations or rashes noted. Impression: Dyspnea secondary to bilateral COVID-pneumonia with hypoxia Hypertension CAD BPH GERD Hyperlipidemia Plan: Dyspnea secondary to bilateral COVID-pneumonia with hypoxia: - refusing BiPAP today - low sats on high flow with NRM Continue IV steroids Continue pulmonary follow-up Continue course of baricitinib -Continue to encourage self proning to side. Possibility of vent and intubation again discussed ,patient states he prefer not to be intubated will d/w with family to talk with patient Hypertension: Continue Toprol-XL 25 mg daily. Will monitor and adjust approp riately. Acute on chronic renal disease stage III: Overall stable CAD: Continue Plavix 75 mg daily. Continue DVT prophylaxis BPH: Continue Flomax 0.4 mg daily. GERD: Continue Protonix 40 mg daily. Hyperlipidemia: Hold Lipitor 40 mg daily due to elevated liver function and w hile patient on baricitinib. Code Status: Full Code DVT prophylaxis: Lovenox Advanced Care Planning-30 minutes: Home at discharge
--- NOTE | 2021-11-27 11:29 | P.PN ---
Subjective Date of Service: 11/27/21 Primary Care Provider: Dr. Gaston Chief Complaint: COVID-19 pneumonia and respiratory failure No change patient still continues to remain hypoxic refusing BiPAP Review of Systems General: Weakness Respiratory: Shortness of Breath Physical Examination - Vital Signs Temperature: 99 F Blood Pressure: 145/77 Pulse: 87 Respirations: 25 Pulse Ox (%): 94 - Physical Exam General: Alert, Oriented x3, Moderate distress Assessment & Plan - Problems (Diagnosis) (1) Pneumonia due to COVID-19 virus Current Visit: Yes Status: Acute Plan: Respiratory failure from coronavirus no change still very hypoxic repeat chest x-ray ordered on maximal therapy labs reviewed Physician Review: Patient Assessed, Agree with Above Assessment and Plan
--- NOTE | 2021-11-27 13:52 | RAD REPORT ---
EXAM DESCRIPTION: RAD - Chest Single View - 11/27/2021 1:31 pm CLINICAL HISTORY: Coronavirus pneumonia COMPARISON: Chest Single View dated 11/25/2021; Chest Single View dated 11/24/2021; Chest Single View dated 11/22/2021; Chest Single View dated 11/20/2021 FINDINGS: Lines: None. Lungs: Severe bilateral airspace disease without appreciable change compared with 11/25/2021. Pleural: No significant pleural effusions or pneumothorax. Cardiac: Similar cardiac silhouette Bones: No acute fractures. Other: IMPRESSION: Severe widespread airspace disease without significant interval change.
[2021-11-27] MEDS: ENSURE ENLIVE 237 ML CAN PO SCH (21:00)
[2021-11-28 06:00] LABS: Ferritin 2296.9 ng/mL (26-388); Potassium 4.5 mmol/L (3.5-5.1)
[2021-11-28 06:03] LABS: Magnesium 3.6 mg/dL (1.8-2.4)
--- NOTE | 2021-11-28 08:18 | RAD REPORT ---
EXAM DESCRIPTION: RAD - Chest Single View - 11/28/2021 6:13 am CLINICAL HISTORY: Coronavirus pneumonia COMPARISON: Chest Single View dated 11/27/2021; Chest Single View dated 11/25/2021; Chest Single View dated 11/24/2021; Chest Single View dated 11/22/2021 FINDINGS: Lines: None. Lungs: Severe bilateral airspace disease without significant interval change. Pleural: No significant pleural effusions or pneumothorax. Cardiac: The heart size is within normal limits. Bones: No acute fractures. Other: IMPRESSION: Moderate to severe bilateral multifocal airspace disease compatible with Covid-19 pneumo eron is unchanged .
[2021-11-28] MEDS: TAMSULOSIN 0.4 MG SR CAP PO SCH (09:00)
[2021-11-28] MEDS: ENSURE ENLIVE 237 ML CAN PO SCH ×2 (09:00→21:00)
[2021-11-28] MEDS: ASPIRIN EC 81 MG TAB PO SCH (09:11)
[2021-11-28] MEDS: VITAMIN B COMPLEX 1 CAP PO SCH (09:11)
[2021-11-28] MEDS: RIVAROXABAN 10 MG TABLET PO SCH (09:11)
[2021-11-28] MEDS: THIAMINE HCL 100 MG TABLET PO SCH (09:11)
[2021-11-28] MEDS: BARICITINIB 2 MG TABLET PO SCH (09:11)
[2021-11-28] MEDS: FAMOTIDINE 20 MG TAB PO SCH (09:11)
[2021-11-28] MEDS: SPIRONOLACTONE 25 MG TABLET PO SCH (09:12)
[2021-11-28] MEDS: AMLODIPINE 5 MG TAB PO SCH (09:12)
[2021-11-28] MEDS: METOPROLOL XL 25 MG TAB PO SCH ×2 (09:12→21:08)
[2021-11-28] MEDS: CLOPIDOGREL 75 MG TABLET PO SCH (09:12)
[2021-11-28] MEDS: VITAMIN D 1000 UNIT TAB PO SCH (09:13)
[2021-11-28] MEDS: METHYLPREDNISOLONE 40 MG INJ IV SCH (09:13)
--- NOTE | 2021-11-28 10:24 | P.PN ---
Date of Service: 11/28/21 Subjective Patient is doing well with no new complaints; clinically trying to fight but getting weaker Physical Examination - Vital Signs Reviewed - Physical Exam General: Alert, In no apparent distress, Oriented x3 Respiratory: Diminished, Rhonchi/gurgles Cardiovascular: Regular rate/rhythm, Normal S1 S2, No murmurs Gastrointestinal: Normal bowel sounds, Soft and benign, Non-distended, No tenderness Neurological: Normal gait, Normal speech, Normal strength at 5/5 x4 extr, Normal tone, Sensation intact, Cranial nerves 3-12 intact, Normal affect Assessment & Plan - Problems (Diagnosis) (1) Pneumonia due to COVID-19 virus Current Visit: Yes Status: Acute (2) Hypoxemia Current Visit: Yes Status: Acute (3) Hypertension Current Visit: Yes Status: Acute (4) Dyslipidemia Current Visit: Yes Status: Acute - Plan Continue with POC as mentioned below: 1. Continue with IV steroids 2. Monitoring inflammatory markers 3. Repeat chest x-ray as symptoms are progressively worsening 4. O2 per protocol; alterante BIPAP and High flow O2 5. Pulmonary consultation obtained 6. Continue with albuterol inhaler therapy; also supportive care 7. GI and DVT prophylaxis
--- NOTE | 2021-11-28 12:46 | P.PN ---
Subjective Date of Service: 11/28/21 Primary Care Provider: Dr. Gaston Chief Complaint: COVID-19 pneumonia and respiratory failure Patient oxygen requirements have declined a little bit still short of breath seems to be improving Review of Systems General: Weakness Respiratory: Shortness of Breath Physical Examination - Vital Signs Temperature: 98.5 F Blood Pressure: 134/63 Pulse: 89 Respirations: 27 Pulse Ox (%): 94 - Physical Exam General: Alert, Moderate distress Respiratory: Clear to auscultation bilaterally, Diminished Assessment & Plan - Problems (Diagnosis) (1) Pneumonia due to COVID-19 virus Current Visit: Yes Status: Acute Plan: Respiratory failure oxygen requirement seems to be declining still weak short of breath labs chemistries reviewed patient is using his BiPAP Physician Review: Patient Assessed, Agree with Above Assessment and Plan
--- NOTE | 2021-11-28 12:50 | P.PN ---
Subjective Date of Service: 11/28/21 Primary Care Provider: Dr. Gaston Chief Complaint: COVID-19 pneumonia and respiratory failure Patient oxygen requirements have declined a little bit still short of breath seems to be improving Physical Examination - Vital Signs Temperature: 98.5 F Blood Pressure: 134/63 Pulse: 89 Respirations: 27 Pulse Ox (%): 94 Assessment & Plan - Problems (Diagnosis) (1) Pneumonia due to COVID-19 virus Current Visit: Yes Status: Acute Plan: Respiratory failure oxygen requirement seems to be declining still weak short of breath labs chemistries reviewed patient is using his BiPAP/with weaning prone position ventilation alternate BiPAP with high flow her 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
[2021-11-28] MEDS ORDERED: MELATONIN 5 MG TABLET PO PRN (17:30)
[2021-11-28] MEDS: predniSONE 20 MG TAB PO SCH (21:08)
--- NOTE | 2021-11-29 07:13 | RAD REPORT ---
EXAM DESCRIPTION: RAD - Chest Single View - 11/29/2021 6:16 am CLINICAL HISTORY: Coronavirus pneumonia COMPARISON: Portable November 28 TECHNIQUE: AP portable chest image was obtained 11/29/2021 6:16 am . FINDINGS: Lung volumes are decreased compared to the prior study. This accentuates the lung parenchy mal opacification. There has been no improvement in the bilateral peripheral pneumonia pattern. Findi ngs may be slightly worse. Bilateral costophrenic angle blunting is present possibly from pleural flu id. Heart size is normal range. Upper lobe vasculature within range of normal. No pneumothorax. IMPRESSION: Bilateral pneumonia pattern showing no improvement and possibly slight progression. More shallow inspiration on today's study accentuates all chest findings.
[2021-11-29 08:13] LABS: C-Reactive Protein 184.68
[2021-11-29] MEDS: ENSURE ENLIVE 237 ML CAN PO SCH ×2 (09:00→21:00)
[2021-11-29] MEDS: TAMSULOSIN 0.4 MG SR CAP PO SCH (09:00)
[2021-11-29] MEDS: RIVAROXABAN 10 MG TABLET PO SCH (09:39)
[2021-11-29] MEDS: predniSONE 20 MG TAB PO SCH ×2 (09:39→21:11)
[2021-11-29] MEDS: SPIRONOLACTONE 25 MG TABLET PO SCH (09:39)
[2021-11-29] MEDS: BARICITINIB 2 MG TABLET PO SCH (09:39)
[2021-11-29] MEDS: ASPIRIN EC 81 MG TAB PO SCH (09:40)
[2021-11-29] MEDS: CLOPIDOGREL 75 MG TABLET PO SCH (09:40)
[2021-11-29] MEDS: AMLODIPINE 5 MG TAB PO SCH (09:40)
[2021-11-29] MEDS: METOPROLOL XL 25 MG TAB PO SCH ×2 (09:40→21:11)
[2021-11-29] MEDS: VITAMIN B COMPLEX 1 CAP PO SCH (09:41)
[2021-11-29] MEDS: FAMOTIDINE 20 MG TAB PO SCH (09:41)
[2021-11-29] MEDS: THIAMINE HCL 100 MG TABLET PO SCH (09:41)
[2021-11-29] MEDS: VITAMIN D 1000 UNIT TAB PO SCH (09:42)
[2021-11-29 13:45] LABS: Arterial Blood Carboxyhemoglob 0.9 % (0-1.5); Blood Gas Oxyhemoglobin 75.9 % (94-97); Blood O2 Saturation 77.4 % (92-98.5)
[2021-11-30] MEDS: ENSURE ENLIVE 237 ML CAN PO SCH ×2 (09:00→21:00)
[2021-11-30] MEDS: FUROSEMIDE 20 MG TABLET PO SCH (09:00)
[2021-11-30] MEDS: BARICITINIB 2 MG TABLET PO SCH (10:35)
[2021-11-30] MEDS: VITAMIN B COMPLEX 1 CAP PO SCH (10:35)
[2021-11-30] MEDS: VITAMIN D 1000 UNIT TAB PO SCH (10:35)
[2021-11-30] MEDS: FAMOTIDINE 20 MG TAB PO SCH (10:35)
[2021-11-30] MEDS: RIVAROXABAN 10 MG TABLET PO SCH (10:35)
[2021-11-30] MEDS: THIAMINE HCL 100 MG TABLET PO SCH (10:36)
[2021-11-30] MEDS: AMLODIPINE 5 MG TAB PO SCH (10:36)
[2021-11-30] MEDS: CLOPIDOGREL 75 MG TABLET PO SCH (10:36)
[2021-11-30] MEDS: ASPIRIN EC 81 MG TAB PO SCH (10:36)
[2021-11-30] MEDS: METOPROLOL XL 25 MG TAB PO SCH ×2 (10:36→21:06)
[2021-11-30] MEDS: TAMSULOSIN 0.4 MG SR CAP PO SCH (10:37)
[2021-11-30] MEDS: SPIRONOLACTONE 25 MG TABLET PO SCH (10:37)
[2021-11-30] MEDS: predniSONE 20 MG TAB PO SCH ×2 (10:37→21:06)
--- NOTE | 2021-11-30 12:20 | P.PN ---
Subjective Date of Service: 11/30/21 Primary Care Provider: Dr. Gaston Chief Complaint: COVID-19 pneumonia and respiratory failure No change still very hypoxic Review of Systems General: Weakness Respiratory: Shortness of Breath Physical Examination - Vital Signs Temperature: 97.4 F Blood Pressure: 139/64 Pulse: 90 Respirations: 36 Pulse Ox (%): 89 - Physical Exam General: Alert, Mild distress Assessment & Plan - Problems (Diagnosis) (1) Pneumonia due to COVID-19 virus Current Visit: Yes Status: Acute Plan: Respiratory failure still continues to remain hypoxic I suspect the blood gases are probably venous. 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
[2021-11-30 20:58] VITALS: O2SAT 90
[2021-12-01] MEDS: TAMSULOSIN 0.4 MG SR CAP PO SCH (09:00)
[2021-12-01] MEDS: ENSURE ENLIVE 237 ML CAN PO SCH ×2 (09:00→21:00)
[2021-12-01] MEDS: AMLODIPINE 5 MG TAB PO SCH (09:34)
[2021-12-01] MEDS: predniSONE 20 MG TAB PO SCH (09:34)
[2021-12-01] MEDS: VITAMIN D 1000 UNIT TAB PO SCH (09:34)
[2021-12-01] MEDS: SPIRONOLACTONE 25 MG TABLET PO SCH (09:34)
[2021-12-01] MEDS: METOPROLOL XL 25 MG TAB PO SCH ×2 (09:35→21:00)
[2021-12-01] MEDS: FAMOTIDINE 20 MG TAB PO SCH (09:35)
[2021-12-01] MEDS: BARICITINIB 2 MG TABLET PO SCH (09:35)
[2021-12-01] MEDS: RIVAROXABAN 10 MG TABLET PO SCH (09:35)
[2021-12-01] MEDS: CLOPIDOGREL 75 MG TABLET PO SCH (09:36)
[2021-12-01] MEDS: ASPIRIN EC 81 MG TAB PO SCH (09:36)
[2021-12-01] MEDS: FUROSEMIDE 20 MG TABLET PO SCH (09:36)
[2021-12-01] MEDS: THIAMINE HCL 100 MG TABLET PO SCH (09:36)
[2021-12-01] MEDS: VITAMIN B COMPLEX 1 CAP PO SCH (09:36)
--- NOTE | 2021-12-01 12:37 | P.PN ---
Subjective Date of Service: 12/01/21 Primary Care Provider: Dr. Gaston Chief Complaint: COVID-19 pneumonia and respiratory failure Not doing well very hypoxic with significant desaturation Review of Systems General: Weakness Respiratory: Shortness of Breath Physical Examination - Vital Signs Temperature: 97.0 F Blood Pressure: 149/68 Pulse: 79 Respirations: 34 Pulse Ox (%): 87 - Physical Exam General: Alert, Cooperative, Moderate distress Assessment & Plan - Problems (Diagnosis) (1) Pneumonia due to COVID-19 virus Current Visit: Yes Status: Acute Plan: Respiratory failure patient remains very hypoxic no change in his condition prognosis poor on maximum therapy no response for over a week unlikely to survive labs medications all reviewed Physician Review: Patient Assessed, Agree with Above Assessment and Plan
--- NOTE | 2021-12-01 20:57 | P.PN ---
Date of Service: 11/29/21 Subjective Patient not really showing any significant improvement. Clinical condition slowly deteriorating. Poor prognosis. Spoke with son and gave him an update. He may come in visit Physical Examination - Vital Signs Reviewed - Physical Exam General: Alert, In no apparent distress, Oriented x3 Respiratory: Diminished, Rhonchi/gurgles Cardiovascular: Regular rate/rhythm, Normal S1 S2, No murmurs Gastrointestinal: Normal bowel sounds, Soft and benign, Non-distended, No tenderness Neurological: Normal gait, Normal speech, Normal strength at 5/5 x4 extr, Normal tone, Sensation intact, Cranial nerves 3-12 intact, Normal affect Assessment & Plan - Problems (Diagnosis) (1) Pneumonia due to COVID-19 virus Current Visit: Yes Status: Acute (2) Hypoxemia Current Visit: Yes Status: Acute (3) Hypertension Current Visit: Yes Status: Acute (4) Dyslipidemia Current Visit: Yes Status: Acute - Plan Continue with POC as mentioned below: 1. Continue with IV steroids 2. Monitoring inflammatory markers 3. Repeat chest x-ray as symptoms are progressively worsening 4. O2 per protocol; alterante BIPAP and High flow O2 5. Pulmonary consultation obtained 6. Continue with albuterol inhaler therapy; also supportive care 7. GI and DVT prophylaxis
--- NOTE | 2021-12-01 21:00 | P.PN ---
Date of Service: 11/30/21 Subjective Patient relaxed and with no complaints. He states he is trying to fight this and get better. Does not want any medication to help him relax. Physical Examination - Vital Signs Reviewed - Physical Exam General: Alert, In no apparent distress, Oriented x3 Respiratory: Diminished, Rhonchi/gurgles Cardiovascular: Regular rate/rhythm, Normal S1 S2, No murmurs Gastrointestinal: Normal bowel sounds, Soft and benign, Non-distended, No tenderness Neurological: Normal gait, Normal speech, Normal strength at 5/5 x4 extr, Normal tone, Sensation intact, Cranial nerves 3-12 intact, Normal affect Assessment & Plan - Problems (Diagnosis) (1) Pneumonia due to COVID-19 virus Current Visit: Yes Status: Acute (2) Hypoxemia Current Visit: Yes Status: Acute (3) Hypertension Current Visit: Yes Status: Acute (4) Dyslipidemia Current Visit: Yes Status: Acute - Plan Continue with POC as mentioned below: 1. Continue with IV steroids; continue baracitinib 2. Repeat labs 3. Repeat chest x-ray as symptoms are progressively worsening 4. O2 per protocol; alternate BIPAP and High flow O2 5. Pulmonary consultation obtained 6. Continue with albuterol inhaler therapy; also supportive care 7. GI and DVT prophylaxis
--- NOTE | 2021-12-01 21:03 | P.PN ---
Date of Service: 12/01/21 Subjective Patient doing poorly. Desatting on CPAP; getting tachypneic. Spoke with son regarding his poor prognosis and he can come visit him tonight. Spoke with him regarding hospice. Considering. Patient does not want any medicine at this time to help him relax Physical Examination - Vital Signs Reviewed - Physical Exam General: Alert, In no apparent distress, Oriented x3 Respiratory: Diminished, Rhonchi/gurgles Cardiovascular: Regular rate/rhythm, Normal S1 S2, No murmurs Gastrointestinal: Normal bowel sounds, Soft and benign, Non-distended, No tenderness Neurological: Normal gait, Normal speech, Normal strength at 5/5 x4 extr, Normal tone, Sensation intact, Cranial nerves 3-12 intact, Normal affect Assessment & Plan - Problems (Diagnosis) (1) Pneumonia due to COVID-19 virus Current Visit: Yes Status: Acute (2) Hypoxemia Current Visit: Yes Status: Acute (3) Hypertension Current Visit: Yes Status: Acute (4) Dyslipidemia Current Visit: Yes Status: Acute - Plan Continue with POC as mentioned below: 1. Continue with IV steroids; continue baracitinib 2. Labs pending. Patient poor prognosis and spoke with family regarding hospice care. Son is, come out tonight and talk with his father who is requesting to see his son. Spoke with him about changing his status to a DNR as this may not be beneficial. 3. Repeat chest x-ray in a.m. 4. O2 per protocol; alternate BIPAP and High flow O2 5. Pulmonary consultation obtained 6. Continue with albuterol inhaler therapy; also supportive care 7. GI and DVT prophylaxis
[2021-12-02] MEDS ORDERED: METHYLPREDNISOLONE 125 MG INJ IV SCH
[2021-12-02 02:31] VITALS: BP 142/73; TEMP 97
[2021-12-02] MEDS ORDERED: NA CHLORIDE 0.9% 1,000 ML ONE (05:15)
[2021-12-02] MEDS ORDERED: EPINEPHrine 1 MG/10 ML SYR IV ONE (08:45)
[2021-12-02] MEDS ORDERED: DOPAMINE/D5W 400 MG/250 ML BAG IV ONE (08:45)
--- NOTE | 2021-12-05 05:23 | P.DS ---
Discharge Date: 12/02/21 Primary Care Provider: Dr. Gaston Disposition: Reason for Admission: COVID-19 pneumonia and respiratory failure - Problems (1) Pneumonia due to COVID-19 virus Status: Acute (2) Hypoxemia Status: Acute (3) Hypertension Status: Acute (4) Dyslipidemia Status: Acute Brief History of Present Illness: Patient is a 76-year-old gentleman who came to the hospital with shortness of breath. Patient had COVID-19 pneumonia. Patient was short of breath and hypoxic. Decision was made to come into the emergency room for further evaluation. Patient has not been vaccinated. He has been sick for the last 2 weeks. He has been waking up having nausea and vomiting. He has been feeling really weak and he came into the hospital very tachypneic with O2 sats in the 70s. Patient was placed on BiPAP. His O2 sats have improved. Patient been weaned down to 35% Venti mask. Will continue to monitor. Hospital Course: Patient's clinical symptoms deteriorated during his hospital stay. Patient did not want to be intubated. Patient wanted to see his son and after talking with the son patient remained did the and height. Patient ended up going into PA and ACLS was attempted. Patient was not able to be resuscitated. Patient ended up peacefully after succumbing to COVID-19 pneumonia. . Home Medications: Aspirin [Aspirin EC 81 MG] 81 mg PO DAILY 11/21/21 Atorvastatin Calcium [Lipitor] 40 mg PO BEDTIME 11/21/21 Clopidogrel Bisulfate [Plavix] 75 mg PO DAILY 11/21/21 Folic Acid/Vit B Complex and C [B-Complex Plus Vitamin C] 1 each PO DAILY 11/21/21 Metoprolol Succinate [Toprol Xl] 25 mg PO DAILY 11/21/21 Tamsulosin HCl [Flomax] 0.4 mg PO DAILY 11/21/21 Physician Discharge Instructions: Patient . Body was released to home. Followup: Marilin GALLO,Gretta Kidd DO [Primary Care Provider] - Time spent managing pt's care (in minutes): 35
== END 2021-12-02 08:20 | disposition expired | DRG 177 ==
LOC: ER 12:51 → ERHOLD 20:20 → 4TH 11-21 15:08
PROVIDERS: ADMIT Hospitalist; ATTEND Hospitalist
PROC: 5A09557 Assistance with Respiratory Ventilation, Greater than 96 Consecutive Hours, Continuous Positive Airway Pressure (ICD-10-PCS; principal; 2021-11-20)
PROC: XW0DXM6 Introduction of Baricitinib into Mouth and Pharynx, External Approach, New Technology Group 6 (ICD-10-PCS; 2021-11-25)
DX: U07.1 COVID-19 (principal); J12.82 Pneumonia due to coronavirus disease 2019; J96.91 Respiratory failure, unspecified with hypoxia; E78.5 Hyperlipidemia, unspecified; N40.0 Benign prostatic hyperplasia without lower urinary tract symptoms; I12.9 Hypertensive chronic kidney disease with stage 1 through stage 4 chronic kidney disease, or unspecified chronic kidney disease; N18.30 Chronic kidney disease, stage 3 unspecified; K21.9 Gastro-esophageal reflux disease without esophagitis; I25.10 Atherosclerotic heart disease of native coronary artery without angina pectoris; I25.2 Old myocardial infarction; Z66 Do not resuscitate; Z79.82 Long term (current) use of aspirin; Z79.02 Long term (current) use of antithrombotics/antiplatelets; Z79.899 Other long term (current) drug therapy; Z95.5 Presence of coronary angioplasty implant and graft
CPT/HCPCS: 0240U; 36415; 71045; 80048; 80053; 80076; 82728; 82805; 82947; 83036; 83605; 83735; 83880; 84100; 84145; 84484; 85025; 85610; 86140; 93005; 94002; 94003; 94660; 94760; 96361; 96365; 96375; 99285; J0171; J1265; J1650; J1720; J1940; J2920; J2930; J7030; J7040; J7512